=== PATIENT | female | born 1970 | race Caucasian/White ===

== ENCOUNTER 2017-02-16 10:21 | Emergency (ER) | payer SELFPAY ==
[~2017-02-16] VITALS: Ht 157.5 cm; Wt 52.8 kg
[~2017-02-16 10:21] MED LIST: ALPR.5 PO; ASPI81TA82 PO; BENZ100 PO; CARI1TAB34 PO; CYMB30CA PO; FLAG500T PO; LORTA5 PO; LOSA50TA PO; PROT40TA PO; ZYRT10TA12 PO
[2017-02-16 10:27] VITALS: BP 132/64; PULSE 84; RESP 14; TEMP 98.4; O2SAT 99
[2017-02-16] MEDS ORDERED: MORPHINE SULFATE 4 MG/ML INJ IV PUSH ONE (11:30)
[2017-02-16] MEDS ORDERED: SODIUM CHLORIDE 0.9% FLUSH 10 ML FLUSH IV FLUSH PRN (11:30)
--- NOTE | 2017-02-16 11:33 | PD ---
HPI Chief Complaint: Pharmacy Order Entry Technician Problem/Complaint Time Seen by Provider: 11:03 Travel History International Travel<30 days: No Contact w/Intl Traveler<30days: No Traveled to known affect area: No History of Present Illness HPI 46yo F with HTN, depression, anxiety presents to the ED with c/o lower abdominal pain for about 1 week. Pt is constant, sharp, nonradiating. Associated with dysuria, foul smell in vaginal area. States she is having vaginal bleeding in between her normal menstrual period and unsure if there are any vaginal discharge because of the blood. States she is back with her boyfriend but he was cheating. Pt also with throat pain for about 6 weeks, states it is worst at night and feels a scratchy feeling. Has history of post nasal drip. Denies any fever, drooling, chest pain, sob, n/v, diarrhea, focal weakness or numbness. PFSH Past Medical History Hx Anticoagulant Therapy: No Asthma: No Blood Disorders: No Bipolar Disorder: Yes Anxiety: Yes Depression: Yes Heart Rhythm Problems: No Cancer: No Cardiovascular Problems: Yes Chemotherapy: No Chest Pain: No Congestive Heart Failure: No COPD: No Cerebrovascular Accident: No Diabetes: No Diminished Hearing: No Endocrine: No Genitourinary: No Hypertension: Yes Immune Disorder: No Musculoskeletal: No Neurologic: No Reproductive: No Respiratory: No Immunizations Current: Yes Radiation Therapy: No Sleep Apnea: No Thyroid Disease: No Influenza Vaccination: No ?: Not LMP: NOW : 2 Para: 2 Miscarriage: 0 : 0 Ovarian Cysts: Yes (RIGHT AND LEFT OVARY) Tubal Ligation: Yes (1991) Past Surgical History Abdominal Surgery: Yes (RT. INGUINAL HERNIOPLASTY 30 YEARS AGO) Hysterectomy: Yes (TUBAL) Other Surgery: Yes (tubal , hernia) Social History Alcohol Use: Yes (VODKA, beer) Tobacco Use: Yes (1 PPD) Substance Use: No Allergies-Medications (Allergen,Severity, Reaction): Coded Allergies: erythromycin base (Unverified Allergy, Mild, UPSET STOMACH, 02/16/17) Reported Meds & Prescriptions Reported Meds & Active Scripts Active Tylenol (Acetaminophen) 325 Mg Tab 650 Mg PO Q6H PRN [place] 5-325 mg (Hydrocodone-Acetaminophen 5-325 mg) 1 Tab 1 Tab PO Q4H PRN Protonix (Pantoprazole Sodium) 40 Mg Tabdr 40 Mg PO DAILY 30 Days Flagyl (Metronidazole) 500 Mg Tab 500 Mg PO TID 5 Days Zyrtec (Cetirizine HCl) 10 Mg Tab 10 Mg PO DAILY 10 Days Tessalon Perles (Benzonatate) 100 Mg Cap 100 Mg PO TID PRN Reported Losartan Potassium 50 MG (Losartan Potassium) 50 Mg Tab 50 Mg PO DAILY Cymbalta (Duloxetine HCl) 30 Mg Cap 30 Mg PO DAILY Aspir-81 (Aspirin) 81 Mg Tab 81 Mg PO DAILY Xanax (Alprazolam) 0.5 Mg Tab 0.5 Mg PO PRN PRN unknown dose Soma 350 Mg Tab (Carisoprodol) 350 Mg Tab 350 Mg PO QHS Review of Systems Except as stated in HPI: all other systems reviewed are Neg Physical Exam Narrative GENERAL: 46yo F in mild distress. SKIN: Focused skin assessment warm/dry. HEAD: Atraumatic. Normocephalic. EYES: Pupils equal and round. No scleral icterus. No injection or drainage. ENT: Throat: Uvula midline. No erythema. No exudate. No tonsillar swelling. CARDIOVASCULAR: Regular rate and rhythm. No murmur appreciated. RESPIRATORY: No accessory muscle use. Clear to auscultation. Breath sounds equal bilaterally. GASTROINTESTINAL: Abdomen soft, +TTP lower abdomen, more suprapubic. No rebound tenderness or guarding. PELVIC: MUSCULOSKELETAL: No obvious deformities. No clubbing. No cyanosis. No edema. NEUROLOGICAL: Awake and alert. No obvious cranial nerve deficits. Motor grossly within normal limits. Normal speech. PSYCHIATRIC: Anxious appearing. Data Data Last Documented VS Vital Signs Date Time Temp Pulse Resp B/P (MAP) Pulse Ox O2 Delivery O2 Flow Rate FiO2 02/16/17 14:29 02/16/17 14:12 74 16 99 02/16/17 10:27 98.4 Orders Orders Complete Blood Count With Diff (02/16/17 11:18) Comprehensive Metabolic Panel (02/16/17 11:18) Lipase (02/16/17 11:18) Urinalysis - C+S If Indicated (02/16/17 11:18) Iv Access Insert/Monitor (02/16/17 11:18) Ecg Monitoring (02/16/17 11:18) Oximetry (02/16/17 11:18) Morphine Inj (Morphine Inj) (02/16/17 11:30) Sodium Chloride 0.9% Flush (Ns Flush) (02/16/17 11:30) Ed Urine Pregnancytest Poc (02/16/17 11:18) Group A Rapid Strep Screen (02/16/17 11:18) Gc And Chlamydia Pcr (02/16/17 11:18) Wet Prep Profile (02/16/17 11:18) Ondansetron Inj (Zofran Inj) (02/16/17 12:00) Strep Culture (Group A) (02/16/17 11:29) Azithromycin Powd Pack (Zithromax Powd P (02/16/17 13:45) Ceftriaxone Inj (Rocephin Inj) (02/16/17 13:45) Lidocaine 1% Inj (50 Ml) (Xylocaine 1% I (02/16/17 13:45) Labs Laboratory Tests Test 02/16/17 11:27 02/16/17 11:30 02/16/17 12:00 Urine Collection Type CLEAN CATCH Urine Color YELLOW Urine Turbidity CLEAR Urine pH 8.5 Urine Specific [place] 1.024 Urine Protein NEG mg/dL Urine Glucose (UA) NEG mg/dL Urine Ketones NEG mg/dL Urine Occult Blood LARGE Urine Nitrite NEG Urine Bilirubin NEG Urine Leukocyte Esterase TRACE Urine RBC 20-24 /hpf Urine WBC 3-5 /hpf Urine Squamous Epithelial Cells 0-5 /hpf Urine Bacteria FEW /hpf Microscopic Urinalysis Comment CULT NOT INDICATED Urine Collection Time 11:27 White Blood Count 12.1 TH/MM3 Red Blood Count 4.18 MIL/MM3 Hemoglobin 12.7 GM/DL Hematocrit 37.7 % Mean Corpuscular Volume 90.1 FL Mean Corpuscular Hemoglobin 30.4 PG Mean Corpuscular Hemoglobin Concent 33.8 % Red Cell Distribution Width 15.2 % Platelet Count 445 TH/MM3 Mean Platelet Volume 8.4 FL Neutrophils (%) (Auto) 72.5 % Lymphocytes (%) (Auto) 17.0 % Monocytes (%) (Auto) 6.5 % Eosinophils (%) (Auto) 2.5 % Basophils (%) (Auto) 1.5 % Neutrophils # (Auto) 8.7 TH/MM3 Lymphocytes # (Auto) 2.1 TH/MM3 Monocytes # (Auto) 0.8 TH/MM3 Eosinophils # (Auto) 0.3 TH/MM3 Basophils # (Auto) 0.2 TH/MM3 CBC Comment DIFF FINAL Differential Comment Blood Urea Nitrogen 7 MG/DL Creatinine 0.55 MG/DL Random Glucose 84 MG/DL Total Protein 6.8 GM/DL Albumin 3.0 GM/DL Calcium Level 8.6 MG/DL Alkaline Phosphatase 98 U/L Aspartate Amino Transf (AST/SGOT) 8 U/L Alanine Aminotransferase (ALT/SGPT) 21 U/L Total Bilirubin 0.2 MG/DL Sodium Level 139 MEQ/L Potassium Level 4.1 MEQ/L Chloride Level 108 MEQ/L Carbon Dioxide Level 26.3 MEQ/L Anion Gap 5 MEQ/L Estimat Glomerular Filtration Rate 118 ML/MIN Lipase 193 U/L Clue Cells (Wet Prep) NONE SEEN Vaginal Trichomonas (Wet Prep) NONE SEEN Vaginal Yeast (Wet Prep) NONE SEEN Chlamydia trachomatis DNA (PCR) NOT DETECTED Neisseria gonorrhoeae DNA (PCR) DETECTED MDM Medical Decision Making Medical Screen Exam Complete: Yes Emergency Medical Condition: Yes Interpretation(s) Laboratory Tests Test 02/16/17 11:27 02/16/17 11:30 02/16/17 12:00 Urine Collection Type CLEAN CATCH Urine Color YELLOW (YELLW/STRAW) Urine Turbidity CLEAR (CLEAR) Urine pH 8.5 (5.0-8.5) Urine Specific [place] 1.024 (1.002-1.035) Urine Protein NEG mg/dL (NEG-TRACE) Urine Glucose (UA) NEG mg/dL (NEG) Urine Ketones NEG mg/dL (NEG) Urine Occult Blood LARGE (NEG) Urine Nitrite NEG (NEG) Urine Bilirubin NEG (NEG) Urine Leukocyte Esterase TRACE (NEG) Urine RBC 20-24 /hpf (0-3) Urine WBC 3-5 /hpf (0-5) Urine Squamous Epithelial Cells 0-5 /hpf (0-5) Urine Bacteria FEW /hpf (NONE) Microscopic Urinalysis Comment CULT NOT INDICATED Urine Collection Time 11:27 White Blood Count 12.1 TH/MM3 (4.0-11.0) Red Blood Count 4.18 MIL/MM3 (4.00-5.30) Hemoglobin 12.7 GM/DL (11.6-15.3) Hematocrit 37.7 % (35.0-46.0) Mean Corpuscular Volume 90.1 FL (80.0-100.0) Mean Corpuscular Hemoglobin 30.4 PG (27.0-34.0) Mean Corpuscular Hemoglobin Concent 33.8 % (32.0-36.0) Red Cell Distribution Width 15.2 % (11.6-17.2) Platelet Count 445 TH/MM3 (150-450) Mean Platelet Volume 8.4 FL (7.0-11.0) Neutrophils (%) (Auto) 72.5 % (16.0-70.0) Lymphocytes (%) (Auto) 17.0 % (9.0-44.0) Monocytes (%) (Auto) 6.5 % (0.0-8.0) Eosinophils (%) (Auto) 2.5 % (0.0-4.0) Basophils (%) (Auto) 1.5 % (0.0-2.0) Neutrophils # (Auto) 8.7 TH/MM3 (1.8-7.7) Lymphocytes # (Auto) 2.1 TH/MM3 (1.0-4.8) Monocytes # (Auto) 0.8 TH/MM3 (0-0.9) Eosinophils # (Auto) 0.3 TH/MM3 (0-0.4) Basophils # (Auto) 0.2 TH/MM3 (0-0.2) CBC Comment DIFF FINAL Differential Comment Blood Urea Nitrogen 7 MG/DL (7-18) Creatinine 0.55 MG/DL (0.50-1.00) Random Glucose 84 MG/DL (74-106) Total Protein 6.8 GM/DL (6.4-8.2) Albumin 3.0 GM/DL (3.4-5.0) Calcium Level 8.6 MG/DL (8.5-10.1) Alkaline Phosphatase 98 U/L (45-117) Aspartate Amino Transf (AST/SGOT) 8 U/L (15-37) Alanine Aminotransferase (ALT/SGPT) 21 U/L (10-53) Total Bilirubin 0.2 MG/DL (0.2-1.0) Sodium Level 139 MEQ/L (136-145) Potassium Level 4.1 MEQ/L (3.5-5.1) Chloride Level 108 MEQ/L (98-107) Carbon Dioxide Level 26.3 MEQ/L (21.0-32.0) Anion Gap 5 MEQ/L (5-15) Estimat Glomerular Filtration Rate 118 ML/MIN (>89) Lipase 193 U/L (73-393) Clue Cells (Wet Prep) NONE SEEN (NONE) Vaginal Trichomonas (Wet Prep) NONE SEEN (NONE) Vaginal Yeast (Wet Prep) NONE SEEN (NONE) Differential Diagnosis Cystitis vs. Chlamydia vs. Gonorrhea vs. Bacterial vaginosis Narrative Course 46yo F with c/o foul smell in the vagina area and lower abdominal pain. Labs reviewed, WBC 12.1. Lipase normal. CMP unremarkable. UA showed large blood. WBC 3-5. Culture not indicated. Wet prep negative. Vital signs stable. Pt given morphine 4mg IV with complete resolution of abdominal pain. Abdomen is soft, NT/ND. Urine negative. Pelvic exam was not remarkable but pt insists that her boyfriend is cheating and wants to be treated before the GC/ chlamydia results. States her erythromycin allergy is not really an allergy and she gets a little upset stomach. No hive or throat swelling or sob. Will treat with ceftriaxone IM and azithromycin PO. Group A strep negative. Return precautions given. Diagnosis Primary Impression: Metrorrhagia Patient Instructions: General Instructions Departure Forms: Tests/Procedures Additional Instructions: Please follow up with your living specialist regarding irregular menstrual bleeding. Return to the ED if symptoms worsen. Med/Other Pt SpecificInfo: Prescription(s) given Scripts Acetaminophen (Tylenol) 325 Mg Tab 650 MG PO Q6H Y for PAIN SCALE 1 TO 4, #20 TAB 0 Refills Prov: KimballTanisha DO 02/16/17 Disposition: 01 DISCHARGE HOME Condition: Stable Tanisha Kimball DO Feb 16, 2017 11:33
[2017-02-16 11:48] LABS: BLOOD, URINE LARGE (NEG); GLUCOSE,URINE NEG (NEG); KETONE, URINE NEG (NEG); NITRITE,URINE NEG (NEG); PH, URINE 8.5 (5.0-8.5)
[2017-02-16 11:50] LABS: AUTOMATED NEUTROPHIL # 8.7 TH/MM3 (1.8-7.7); BASOPHIL # 0.2 TH/MM3 (0-0.2); BASOPHIL % 1.5 % (0.0-2.0); EOSINOPHIL # 0.3 TH/MM3 (0-0.4); EOSINOPHIL % 2.5 % (0.0-4.0); HEMATOCRIT 37.7 % (35.0-46.0); LYMPHOCYTE # 2.1 TH/MM3 (1.0-4.8); MEAN CELL VOLUME 90.1 FL (80.0-100.0); MEAN CORPUSCULAR HEMOGLOBIN 30.4 PG (27.0-34.0); MEAN CORPUSCULAR HGB CONC 33.8 % (32.0-36.0); MONO % 6.5 % (0.0-8.0); NEUT % 72.5 % (16.0-70.0); PLATELET COUNT 445 TH/MM3 (150-450); RED BLOOD COUNT 4.18 MIL/MM3 (4.00-5.30); RED CELL DISTRIBUTION WIDTH 15.2 % (11.6-17.2); WHITE BLOOD COUNT 12.1 TH/MM3 (4.0-11.0)
[2017-02-16 11:56] LABS: BACTERIA, URINE FEW /hpf; COMMENT (UR) CULT NOT INDICATED; CULTURE IF INDICATED CULT NOT INDICATED; METHOD OF COLLECTION CLEAN CATCH; SQUAMOUS EPITHELIAL CELL URINE 0-5 /hpf (0-5); URINE COLOR YELLOW (YELLW/STRAW)
[2017-02-16 11:57] LABS: CHLORIDE 108 MEQ/L (98-107); POTASSIUM 4.1 MEQ/L (3.5-5.1); SODIUM (NA) 139 MEQ/L (136-145)
[2017-02-16 11:58] LABS: HEMO FLAGS DIFF FINAL
[2017-02-16] MEDS ORDERED: ONDANSETRON HCL 4 MG/2 ML VIAL IV PUSH ONE (12:00)
[2017-02-16 12:01] LABS: ANION GAP 5 MEQ/L (5-15); BICARBONATE 26.3 MEQ/L (21.0-32.0); BLOOD UREA NITROGEN 7 MG/DL (7-18)
[2017-02-16 12:04] LABS: ALT (GPT) 21 U/L (10-53); AST (GOT) 8 U/L (15-37); GLOMERULAR FILTRATION RATE 118 ML/MIN (>89)
[2017-02-16 12:05] LABS: TOTAL BILIRUBIN ADULT 0.2 MG/DL (0.2-1.0)
[2017-02-16 12:07] LABS: ALKALINE PHOSPHATASE 98 U/L (45-117)
[2017-02-16 12:50] VITALS: BP 127/78; PULSE 65; RESP 16; O2SAT 97
[2017-02-16] MEDS ORDERED: TYLE325T PO (13:44)
[2017-02-16] MEDS ORDERED: AZITHROMYCIN PWD FOR SUSP 1 GM PACKET PO ONE (13:45)
[2017-02-16] MEDS ORDERED: cefTRIAXone 250 MG VIAL IM ONE (13:45)
[2017-02-16] MEDS ORDERED: LIDOCAINE HCL 1% 50 ML VIAL IM ONE (13:45)
[2017-02-16 14:12] VITALS: BP 121/74; PULSE 74; RESP 16; O2SAT 99
[2017-02-16 16:51] LABS: CHLAMYDIA PCR NOT DETECTED (NOT DETECT); NEISSERIA PCR DETECTED (NOT DETECT)
== END 2017-02-16 14:25 | disposition home or self-care (01) ==
LOC: PHED 10:21
DX: N92.1 Excessive and frequent menstruation with irregular cycle (principal); I10 Essential (primary) hypertension; F41.9 Anxiety disorder, unspecified; R30.0 Dysuria; F31.9 Bipolar disorder, unspecified; F17.200 Nicotine dependence, unspecified, uncomplicated
CPT/HCPCS: 80053; 81001; 83690; 84703; 85025; 87081; 87210; 87491; 87591; 87880; 96372; 96374; 99284; J0696; J2270

== ENCOUNTER 2017-07-15 07:37 | Emergency (ER) | payer SELFPAY ==
[~2017-07-15] VITALS: Ht 157.5 cm; Wt 53.0 kg
[~2017-07-15 07:37] MED LIST changes: +TYLE325T PO
[2017-07-15 07:41] VITALS: BP 160/95; PULSE 82; RESP 16; TEMP 97.6; O2SAT 100
--- NOTE | 2017-07-15 08:05 | PD ---
HPI Chief Complaint: Nurse Transition Problem/Complaint Time Seen by Provider: 07:56 Travel History International Travel<30 days: No Contact w/Intl Traveler<30days: No Traveled to known affect area: No History of Present Illness HPI Patient was seen and examined in the presence of a nurse at all times This is a 46-year-old female who presents for possible sexually transmitted disease. She states that for the last 2 weeks, she has had a foul-smelling discharge from her vagina. No fever, chills, abdominal pain, vomiting, diarrhea. No urinary urgency, frequency, dysuria, hematuria. She states that she has a history of gonorrhea and was recently with a partner that she is concerned had a sexual transmitted disease. She also notes a mildly sore throat. No difficulty breathing, speaking, swallowing. No associated cough or congestion. Symptoms are mild in severity. Onset gradual. Aggravated by unprotected sex. PFSH Past Medical History Hx Anticoagulant Therapy: No Asthma: No Blood Disorders: No Bipolar Disorder: Yes Anxiety: Yes Depression: Yes Heart Rhythm Problems: No Cancer: No Cardiovascular Problems: Yes Chemotherapy: No Chest Pain: No Congestive Heart Failure: No COPD: No Cerebrovascular Accident: No Diabetes: No Diminished Hearing: No Endocrine: No Genitourinary: No Hypertension: Yes Immune Disorder: No Musculoskeletal: No Neurologic: No Reproductive: No Respiratory: No Immunizations Current: Yes Radiation Therapy: No Sleep Apnea: No Thyroid Disease: No Tetanus Vaccination: < 5 Years Influenza Vaccination: No ?: Not LMP: 2 weeks : 2 Para: 2 Miscarriage: 0 : 0 Ovarian Cysts: Yes () Tubal Ligation: Yes (1991) Past Surgical History Abdominal Surgery: Yes (Hernia ) Hysterectomy: Yes (TUBAL) Other Surgery: Yes (tubal , hernia) Social History Alcohol Use: Yes (Occ.) Tobacco Use: Yes (05/17 PPD) Substance Use: No Allergies-Medications (Allergen,Severity, Reaction): Coded Allergies: erythromycin base (Verified Allergy, Intermediate, Rash, 07/15/17) Reported Meds & Prescriptions Reported Meds & Active Scripts Active No Active Prescriptions or Reported Medications Review of Systems Except as stated in HPI: all other systems reviewed are Neg Physical Exam Narrative GENERAL: Alert, well nourished, well appearing patient resting on the bed in no acute distress. Vital Signs reviewed SKIN: Focused skin assessment warm/dry. HEAD: Atraumatic. Normocephalic. EYES: Pupils equal and round. No scleral icterus. No injection or drainage. ENT: No nasal bleeding or discharge. Mucous membranes pink and moist. posterior oropharynx with no erythema, edema, exudate. Uvula is midline. NECK: Trachea midline. No JVD. Spontaneous, painless full range of motion with no meningismus CARDIOVASCULAR: Regular rate and rhythm. No murmur appreciated. Extremities warm and well perfused with bounding peripheral pulses RESPIRATORY: No accessory muscle use. Clear to auscultation. Breath sounds equal bilaterally. Breathing easily and speaking in full sentences GASTROINTESTINAL: Abdomen soft, non-tender, nondistended. Normal bowel sounds. No rigid, rebound, guarding Pelvic exam performed in presence of nurse Maryam: There is thin white discharge in vaginal vault. No obvious blood in vaginal vault. No cervical motion tenderness, adnexal masses or tenderness. NEUROLOGICAL: Awake and alert. Motor grossly within normal limits. Normal speech. Sensation intact. Normal gait Data Data Last Documented VS Vital Signs Date Time Temp Pulse Resp B/P (MAP) Pulse Ox O2 Delivery O2 Flow Rate FiO2 07/15/17 09:05 70 16 128/86 (100) 99 Room Air 07/15/17 07:41 97.6 Orders Orders Gc And Chlamydia Pcr (07/15/17 08:01) Wet Prep Profile (07/15/17 08:01) Urinalysis - C+S If Indicated (07/15/17 08:01) Ed Urine Pregnancytest Poc (07/15/17 08:01) Group A Rapid Strep Screen (07/15/17 08:01) Azithromycin Powd Pack (Zithromax Powd P (07/15/17 08:30) Ceftriaxone Inj (Rocephin Inj) (07/15/17 08:30) Lidocaine 1% Inj (50 Ml) (Xylocaine 1% I (07/15/17 08:30) Lidocaine Pf 1% Inj (Xylocaine-Mpf 1% In (07/15/17 08:25) Lidocaine Pf 1% Inj (Xylocaine-Mpf 1% In (07/15/17 08:30) Strep Culture (Group A) (07/15/17 08:05) Labs Laboratory Tests Test 07/15/17 08:05 07/15/17 08:15 Urine Collection Type CLEAN CATCH Urine Color YELLOW Urine Turbidity CLEAR Urine pH 8.0 Urine Specific [place] 1.020 Urine Protein NEG mg/dL Urine Glucose (UA) NEG mg/dL Urine Ketones NEG mg/dL Urine Occult Blood TRACE Urine Nitrite NEG Urine Bilirubin NEG Urine Urobilinogen 0.2 MG/DL Urine Leukocyte Esterase NEG Urine RBC 0-3 /hpf Urine WBC 0-2 /hpf Urine Squamous Epithelial Cells 0-5 /hpf Microscopic Urinalysis Comment CULT NOT INDICATED Urine Collection Time 08:05 Clue Cells (Wet Prep) NONE SEEN Vaginal Trichomonas (Wet Prep) PRESENT Vaginal Yeast (Wet Prep) NONE SEEN MDM Medical Decision Making Medical Screen Exam Complete: Yes Emergency Medical Condition: Yes Medical Record Reviewed: Yes Interpretation(s) Date/Time Source Procedure Growth Status 07/15/17 08:05 Throat Group A Streptococcus Screen Pending Received 07/15/17 08:05 Throat Group A Streptococcus Screen ([facility]) - Final Complete Laboratory Tests Test 07/15/17 08:05 07/15/17 08:15 Urine Collection Type CLEAN CATCH Urine Color YELLOW Urine Turbidity CLEAR Urine pH 8.0 Urine Specific [place] 1.020 Urine Protein NEG mg/dL Urine Glucose (UA) NEG mg/dL Urine Ketones NEG mg/dL Urine Occult Blood TRACE Urine Nitrite NEG Urine Bilirubin NEG Urine Urobilinogen 0.2 MG/DL Urine Leukocyte Esterase NEG Urine RBC 0-3 /hpf Urine WBC 0-2 /hpf Urine Squamous Epithelial Cells 0-5 /hpf Microscopic Urinalysis Comment CULT NOT INDICATED Urine Collection Time 08:05 Clue Cells (Wet Prep) NONE SEEN Vaginal Trichomonas (Wet Prep) PRESENT Vaginal Yeast (Wet Prep) NONE SEEN Differential Diagnosis Gonorrhea, chlamydia, trichomonas, yeast infection, bacterial vaginosis, pharyngitis, strep pharyngitis Narrative Course The patient appears well. She has no tenderness on abdominal or pelvic exam. She believes that she was recently exposed to gonorrhea or other sexually transmitted disease. She states that she has taken azithromycin in the past without allergic reaction. Cultures were sent. Patient has trichomonas. She was given 2 g of oral Flagyl, IM Rocephin and oral azithromycin. She has no evidence of PID on exam. I counseled her extensively regarding safe sex. Plan for discharge with supportive care and close outpatient follow-up with deck lid fitter and or health department. Patient understands the importance of close outpatient follow-up. She understands she may require further testing and treatment as an outpatient. She understands it is her responsibility to arrange and follow through with these appointments. She understands that we only tested for gonorrhea, chlamydia, trichomonas, yeast infection and bacterial vaginosis. Any other sexually transmitted disease testing will need to be done as an outpatient. She understands strict return indications. She is comfortable with this plan and eager to go home. Diagnosis Primary Impression: Trichomonas vaginalis infection [facility] Patient Instructions: General Instructions, Sexually Transmitted Diseases (DC) , Trichomoniasis (ED) Additional Instructions: Always use a condom and practice safe sex. You must follow-up with the health department or your deck lid fitter in 3 days for recheck. Med/Other Pt SpecificInfo: No Change to Meds Scripts No Active Prescriptions or Reported Meds Disposition: 01 DISCHARGE HOME Condition: Stable Quin Fierro MD Jul 15, 2017 08:05
[2017-07-15 08:13] LABS: BILIRUBIN, URINE NEG (NEG); BLOOD, URINE TRACE (NEG); GLUCOSE,URINE NEG (NEG); KETONE, URINE NEG (NEG); NITRITE,URINE NEG (NEG); URINE COLOR YELLOW (YELLW/STRAW); URINE LEUKOCYTE ESTERASE NEG (NEG)
[2017-07-15 08:24] LABS: RBC, URINE 0-3 /hpf (0-3); SQUAMOUS EPITHELIAL CELL URINE 0-5 /hpf (0-5); WBC, URINE 0-2 /hpf (0-5)
[2017-07-15] MEDS ORDERED: LIDOCAINE HCL 1% PF 30 ML VIAL ONE (08:25)
[2017-07-15] MEDS ORDERED: LIDOCAINE HCL 1% PF 30 ML VIAL OTHER ONE (08:30)
[2017-07-15] MEDS ORDERED: AZITHROMYCIN PWD FOR SUSP 1 GM PACKET PO ONE (08:30)
[2017-07-15] MEDS ORDERED: cefTRIAXone 250 MG VIAL IM ONE (08:30)
[2017-07-15] MEDS ORDERED: LIDOCAINE HCL 1% 50 ML VIAL IM ONE (08:30)
[2017-07-15 09:05] VITALS: BP 128/86; PULSE 70; RESP 16; O2SAT 99
[2017-07-15] MEDS ORDERED: metroNIDAZOLE 500 MG TAB PO ONE (09:15)
== END 2017-07-15 09:25 | disposition home or self-care (01) ==
LOC: PHED 07:37
DX: A59.01 Trichomonal vulvovaginitis (principal); F17.200 Nicotine dependence, unspecified, uncomplicated
CPT/HCPCS: 81001; 84703; 87081; 87210; 87491; 87591; 87880; 96372; 99284; J0696